=== PATIENT | female | born 1930 ===

== ENCOUNTER 2018-08-25 21:25 | Inpatient (IN) ==
[2018-08-26 00:40] LABS: Baso # (Auto) 0.1 th/mm3 (0.0-0.2); Eos # (Auto) 0.1 th/mm3 (0.0-0.4); Eos % (Auto) 1.6 % (0.0-4.0); Hematocrit 33.8 % (35.0-46.0); Hemoglobin 11.2 gm/dL (11.6-15.3); Lymph # (Auto) 2.3 th/mm3 (1.0-4.8); Lymph % (Auto) 27.4 % (9.0-44.0); Mean Corpuscular HGB Conc 33.1 % (32.0-36.0); Mean Corpuscular Hemoglobin 28.2 pg (27.0-34.0); Mean Corpuscular Volume 85.3 fL (80.0-100.0); Mean Platelet Volume 9.1 fL (7.0-11.0); Mono # (Auto) 0.7 th/mm3 (0.0-0.9); Mono % (Auto) 8.8 % (0.0-8.0); Neut % (Auto) 61.2 % (16.0-70.0); Platelet Count 264 th/mm3 (150-450); Red Blood Count 3.97 mil/mm3 (4.00-5.30); Red Cell Distribution Width 14.6 % (11.6-17.2); White Blood Count 8.2 th/mm3 (4.0-11.0)
[2018-08-26 01:01] LABS: Alanine Aminotransferase 14 U/L (10-53); Albumin 3.7 g/dL (3.4-5.0); Anion Gap 8 meq/L (5-15); Aspartate Aminotransferase 27 U/L (15-37); Blood Urea Nitrogen 18 mg/dL (7-18); Calcium 9.2 mg/dL (8.5-10.1); Carbon Dioxide 27.8 meq/L (21.0-32.0); Chloride 106 meq/L (98-107); Glomerular Filtration Rate 21 mL/min (>89); Glucose,Random 111 mg/dL (74-106); Magnesium 1.9 mg/dL (1.5-2.5); Potassium 3.9 meq/L (3.5-5.1); Sodium 142 meq/L (136-145)
[2018-08-26 01:11] LABS: Alkaline Phosphatase 109 U/L (45-117); Total Protein 7.7 g/dL (6.4-8.2)
[2018-08-26] MEDS ORDERED: Acetaminophen 325 MG Tablet PO ONE (01:14)
[2018-08-26] MEDS ORDERED: Sodium Chlor 0.9% Inj 500 ML IV.SIG SCH (02:00)
--- NOTE | 2018-08-26 02:22 | ED ---
HPI General Chief Complaint: Medical Clearance Stated Complaint: Mishel Simental Time Seen by Provider: 08/25/18 22:28 Source: EMS Mode of arrival: EMS Limitations: other (Dementia) History of Present Illness HPI Narrative: Patient was brought in as a Pollard act. Apparently patient as per the Pollard act has been threatening to kill herself and shoot her dogs. She has history of dementia. She appears to be quite disheveled and unkempt. She is not a reliable historian. She is vehemently denying everything and very paranoid. She would not let me or the nurse see her. Vital signs are relatively stable Related Data Home Medications Medication Instructions Recorded Confirmed calcitriol 0.25 mcg PO DAILY 08/27/18 08/27/18 donepezil 10 mg PO HS 08/27/18 08/27/18 levocetirizine 5 mg PO DAILY 08/27/18 08/27/18 lovastatin 40 mg PO QPM 08/27/18 08/27/18 metoprolol succinate 25 mg PO DAILY 08/27/18 08/27/18 Previous Rx's Medication Instructions Recorded amlodipine [Norvasc] 5 mg PO DAILY 30 Days #30 tab 08/28/18 donepezil 5 mg PO DAILY 30 Days #30 tab 08/28/18 memantine [Namenda] 5 mg PO DAILY 30 Days #30 tab 08/28/18 quetiapine 25 mg PO BID #60 tab 08/28/18 Allergies Allergy/AdvReac Type Severity Reaction Status Date / Time No Allergy Information Allergy Verified 08/27/18 13:19 Available Review of Systems ROS Unobtainable ROS Unobtainable: unobtainable due to mental condition [facility] Medical History Medical History Medical history unknown (Acute) Surgical history unknown (Acute) Social History Social History Substance History: Unable to Obtain Smoking Status: Refused to answer How Often Do You Have a Drink Containing Alcohol: Unable to Obtain Immunization History Tetanus Immunization: Unable to Assess Exam Narrative Exam Narrative: GENERAL: Awake, disheveled, poor skin hygiene, confused and angry SKIN: Focused skin assessment warm/dry. Disheveled and poor skin hygiene HEAD: Atraumatic. Normocephalic. EYES: Pupils equal and round. No scleral icterus. No injection or drainage. ENT: No nasal bleeding or discharge. Mucous membranes pink and moist. NECK: Trachea midline. No JVD. CARDIOVASCULAR: Regular rate and rhythm. No murmur appreciated. RESPIRATORY: No accessory muscle use. Clear to auscultation. Breath sounds equal bilaterally. GASTROINTESTINAL: Abdomen soft, non-tender, nondistended. Hepatic and splenic margins not palpable. MUSCULOSKELETAL: No obvious deformities. No clubbing. No cyanosis. No edema. NEUROLOGICAL: Awake and confused. No obvious cranial nerve deficits. Motor grossly within normal limits. Normal speech. She seems very angry and paranoid PSYCHIATRIC: Appropriate mood and affect; insight and judgment normal. Course Initial Documented Vital Signs Temperature 98.4 F 08/25/18 22:38 Pulse Rate 74 08/25/18 22:38 Respiratory Rate 18 08/25/18 22:38 Blood Pressure 197/98 H 08/25/18 22:38 Pulse Oximetry 97 08/25/18 22:38 Last Documented Vital Signs Temperature 98.3 F 08/28/18 11:59 Pulse Rate 57 L 08/28/18 11:59 Respiratory Rate 16 08/28/18 11:59 Blood Pressure 114/51 L 08/28/18 11:59 Pulse Oximetry 98 08/28/18 11:59 Medical Decision Making [facility] Narrative Medical decision making narrative: 2:21 AM blood test results are back and creatinine is somewhat elevated. Have no old blood test results to compare this with. However given patient's condition there could be some element of dehydration. I have ordered 500 cc of IV fluid bolus. After that she will be medically cleared. She will require psych screen. Medical Screen Exam Complete: Yes Emergency Medical Condition: Yes Lab Data Result diagrams: 08/28/18 09:35 08/28/18 09:35 Lab Results 08/25/18 08/25/18 08/26/18 Range/Units 23:55 23:55 04:00 WBC 8.2 (4.0-11.0) th/mm3 RBC 3.97 L (4.00-5.30) mil/mm3 Hgb 11.2 L (11.6-15.3) gm/dL Hct 33.8 L (35.0-46.0) % MCV 85.3 (80.0-100.0) fL MCH 28.2 (27.0-34.0) pg MCHC 33.1 (32.0-36.0) % RDW 14.6 (11.6-17.2) % Plt Count 264 (150-450) th/mm3 MPV 9.1 (7.0-11.0) fL Neut % (Auto) 61.2 (16.0-70.0) % Lymph % (Auto) 27.4 (9.0-44.0) % [place] % (Auto) 8.8 H (0.0-8.0) % Eos % (Auto) 1.6 (0.0-4.0) % Baso % (Auto) 1.0 (0.0-2.0) % Neut # (Auto) 5.0 (1.8-7.7) th/mm3 Lymph # (Auto) 2.3 (1.0-4.8) th/mm3 [place] # (Auto) 0.7 (0.0-0.9) th/mm3 Eos # (Auto) 0.1 (0.0-0.4) th/mm3 Baso # (Auto) 0.1 (0.0-0.2) th/mm3 WBC Differential . Differential Comment Auto diff final Sodium 142 (136-145) meq/L Potassium 3.9 (3.5-5.1) meq/L Chloride 106 (98-107) meq/L Carbon Dioxide 27.8 (21.0-32.0) meq/L Anion Gap 8 (5-15) meq/L BUN 18 (7-18) mg/dL Creatinine 2.07 H (0.50-1.00) mg/dL Estimated GFR 21 L (>89) mL/min Random Glucose 111 H (74-106) mg/dL Calcium 9.2 (8.5-10.1) mg/dL Magnesium 1.9 (1.5-2.5) mg/dL Total Bilirubin 0.6 (0.2-1.0) mg/dL AST 27 (15-37) U/L ALT 14 (10-53) U/L Alkaline Phosphatase 109 (45-117) U/L Total Protein 7.7 (6.4-8.2) g/dL Albumin 3.7 (3.4-5.0) g/dL TSH 1.690 (0.358-3.740) uIU/mL Urine Color (Yellw/Straw) Urine Clarity (Clear) Urine pH (5.0-8.5) Ur Specific [place] (1.002-1.035) Urine Protein (Neg-Trace) mg/dL Urine Glucose (UA) (Negative) mg/dL Urine Ketones (Negative) mg/dL Urine Occult Blood (Negative) Urine Nitrate (Negative) Urine Bilirubin (Negative) Urine Urobilinogen (Less than 2) mg/dL Ur Leukocyte Esterase (Negative) Urine RBC (0-3) /hpf Urine WBC (0-5) /hpf Ur Squamous Epith Cells (0-5) /hpf Urine Bacteria (None) /hpf Hyaline Casts (0-3) /lpf Urine Mucus (Occasional) /lpf Micro UA Comment Ur Microscopic Review Urine Culture Comments Urine Opiates Screen Neg (Neg) Ur Barbiturates Screen Neg (Neg) Ur Amphetamines Screen Neg (Neg) U Benzodiazepines Scrn Neg (Neg) Urine Cocaine Screen Neg (Neg) U Cannabinoids Screen Neg (Neg) Serum Alcohol Less than 3 (0-5) mg/dL 08/26/18 08/27/18 08/27/18 Range/Units 04:00 15:44 15:44 WBC 6.0 (4.0-11.0) th/mm3 RBC 3.67 L (4.00-5.30) mil/mm3 Hgb 10.5 L (11.6-15.3) gm/dL Hct 32.0 L (35.0-46.0) % MCV 87.0 (80.0-100.0) fL MCH 28.5 (27.0-34.0) pg MCHC 32.8 (32.0-36.0) % RDW 14.5 (11.6-17.2) % Plt Count 220 (150-450) th/mm3 MPV 9.3 (7.0-11.0) fL Neut % (Auto) 64.1 (16.0-70.0) % Lymph % (Auto) 26.6 (9.0-44.0) % [place] % (Auto) 7.1 (0.0-8.0) % Eos % (Auto) 1.5 (0.0-4.0) % Baso % (Auto) 0.7 (0.0-2.0) % Neut # (Auto) 3.8 (1.8-7.7) th/mm3 Lymph # (Auto) 1.6 (1.0-4.8) th/mm3 [place] # (Auto) 0.4 (0.0-0.9) th/mm3 Eos # (Auto) 0.1 (0.0-0.4) th/mm3 Baso # (Auto) 0.0 (0.0-0.2) th/mm3 WBC Differential . Differential Comment Auto diff final Sodium 144 (136-145) meq/L Potassium 3.3 L (3.5-5.1) meq/L Chloride 110 H (98-107) meq/L Carbon Dioxide 26.1 (21.0-32.0) meq/L Anion Gap 8 (5-15) meq/L BUN 15 (7-18) mg/dL Creatinine 1.68 H (0.50-1.00) mg/dL Estimated GFR 26 L (>89) mL/min Random Glucose 124 H (74-106) mg/dL Calcium 8.8 (8.5-10.1) mg/dL Magnesium (1.5-2.5) mg/dL Total Bilirubin 0.3 (0.2-1.0) mg/dL AST 27 (15-37) U/L ALT 13 (10-53) U/L Alkaline Phosphatase 91 (45-117) U/L Total Protein 6.7 D (6.4-8.2) g/dL Albumin 3.0 L D (3.4-5.0) g/dL TSH (0.358-3.740) uIU/mL Urine Color Yellow (Yellw/Straw) Urine Clarity Clear (Clear) Urine pH 6.0 (5.0-8.5) Ur Specific [place] 1.014 (1.002-1.035) Urine Protein Negative (Neg-Trace) mg/dL Urine Glucose (UA) Negative (Negative) mg/dL Urine Ketones Negative (Negative) mg/dL Urine Occult Blood Small H (Negative) Urine Nitrate Negative (Negative) Urine Bilirubin Negative (Negative) Urine Urobilinogen Less than 2 (Less than 2) mg/dL Ur Leukocyte Esterase Large H (Negative) Urine RBC 2 (0-3) /hpf Urine WBC 13 H (0-5) /hpf Ur Squamous Epith Cells 2 (0-5) /hpf Urine Bacteria Rare H (None) /hpf Hyaline Casts 4 (0-3) /lpf Urine Mucus Few H (Occasional) /lpf Micro UA Comment Culture indicated Ur Microscopic Review Not Reportable Urine Culture Comments Culture indicated Urine Opiates Screen (Neg) Ur Barbiturates Screen (Neg) Ur Amphetamines Screen (Neg) U Benzodiazepines Scrn (Neg) Urine Cocaine Screen (Neg) U Cannabinoids Screen (Neg) Serum Alcohol (0-5) mg/dL 08/28/18 08/28/18 Range/Units 09:35 09:35 WBC 7.5 (4.0-11.0) th/mm3 RBC 4.11 (4.00-5.30) mil/mm3 Hgb 11.5 L (11.6-15.3) gm/dL Hct 34.9 L (35.0-46.0) % MCV 85.0 (80.0-100.0) fL MCH 27.9 (27.0-34.0) pg MCHC 32.9 (32.0-36.0) % RDW 14.8 (11.6-17.2) % Plt Count 231 (150-450) th/mm3 MPV 9.0 (7.0-11.0) fL Neut % (Auto) 55.3 (16.0-70.0) % Lymph % (Auto) 32.8 (9.0-44.0) % [place] % (Auto) 7.4 (0.0-8.0) % Eos % (Auto) 3.6 (0.0-4.0) % Baso % (Auto) 0.9 (0.0-2.0) % Neut # (Auto) 4.1 (1.8-7.7) th/mm3 Lymph # (Auto) 2.4 (1.0-4.8) th/mm3 [place] # (Auto) 0.6 (0.0-0.9) th/mm3 Eos # (Auto) 0.3 (0.0-0.4) th/mm3 Baso # (Auto) 0.1 (0.0-0.2) th/mm3 WBC Differential . Differential Comment Auto diff final Sodium 143 (136-145) meq/L Potassium 4.3 D (3.5-5.1) meq/L Chloride 112 H (98-107) meq/L Carbon Dioxide 22.1 (21.0-32.0) meq/L Anion Gap 9 (5-15) meq/L BUN 12 (7-18) mg/dL Creatinine 1.60 H (0.50-1.00) mg/dL Estimated GFR 28 L (>89) mL/min Random Glucose 84 (74-106) mg/dL Calcium 8.9 (8.5-10.1) mg/dL Magnesium (1.5-2.5) mg/dL Total Bilirubin (0.2-1.0) mg/dL AST (15-37) U/L ALT (10-53) U/L Alkaline Phosphatase (45-117) U/L Total Protein (6.4-8.2) g/dL Albumin (3.4-5.0) g/dL TSH (0.358-3.740) uIU/mL Urine Color (Yellw/Straw) Urine Clarity (Clear) Urine pH (5.0-8.5) Ur Specific [place] (1.002-1.035) Urine Protein (Neg-Trace) mg/dL Urine Glucose (UA) (Negative) mg/dL Urine Ketones (Negative) mg/dL Urine Occult Blood (Negative) Urine Nitrate (Negative) Urine Bilirubin (Negative) Urine Urobilinogen (Less than 2) mg/dL Ur Leukocyte Esterase (Negative) Urine RBC (0-3) /hpf Urine WBC (0-5) /hpf Ur Squamous Epith Cells (0-5) /hpf Urine Bacteria (None) /hpf Hyaline Casts (0-3) /lpf Urine Mucus (Occasional) /lpf Micro UA Comment Ur Microscopic Review Urine Culture Comments Urine Opiates Screen (Neg) Ur Barbiturates Screen (Neg) Ur Amphetamines Screen (Neg) U Benzodiazepines Scrn (Neg) Urine Cocaine Screen (Neg) U Cannabinoids Screen (Neg) Serum Alcohol (0-5) mg/dL Discharge Plan Discharge Disposition Patient Disposition: ED Admit(ED Internal Use Only) Discharge Condition Condition: Stable Discharge Order Discharge Orders: Discharge Order (Routine); Ordered 08/28/18 Ordered By: Bing Thornton ED Use Only Admit Order (Routine); Ordered 08/26/18 Ordered By: Kiko Marx Discharge Details Anticipated Discharge Date: 08/28/18 Discharge Comment: Ok to discharge to inpatient med-psych unit. Need to continue IVF hydration in med-psych. Diagnosis: Dementia, UTI (urinary tract infection) Physicians Team ED Provider: Yves Mccarty Primary Care Provider: UNKNOWN, Attending Provider: Betty Jensen Other Providers: Wilbur Randall Status ED Status: Left Department Discharge Information Discharge Date/Time: 08/26/18 14:25
[2018-08-26 04:31] LABS: Bacteria,Urine Rare /hpf; Bilirubin,Urine Negative (Negative); Clarity,Urine Clear (Clear); Color,Urine Yellow (Yellw/Straw); Glucose,Urine (UA) Negative (Negative); Hyaline Casts,Urine 4 /lpf (0-3); Leukocyte Esterase,Urine Large (Negative); Mucus,Urine Few /lpf (Occasional); Nitrite,Urine Negative (Negative); Specific Gravity,Urine 1.014 (1.002-1.035); Squamous Epithelial Cell,Urine 2 /hpf (0-5)
[2018-08-26 04:34] LABS: Amphetamine Screen,Urine Neg (Neg); Barbiturate Screen,Urine Neg (Neg); Cannabinoid Screen,Urine Neg (Neg); Cocaine Screen,Urine Neg (Neg)
[2018-08-26 04:51] LABS: Opiate Screen,Urine Neg (Neg)
--- NOTE | 2018-08-26 11:01 | ED ---
HPI - Psych - General Source: EMS Mode of arrival: EMS - General Chief Complaint: Medical Clearance Stated Complaint: CRUZITO-Mukund Simental Time Seen by Provider: 08/25/18 22:28 - History of Present Illness HPI Narrative: Patient is an elderly, , who was admitted as a Doecandle Marlena Wall she states that her name is Starr Baires. She was transported to the emergency room under a Pollard act by the [facility]'s office. The Pollard act states," Jennifer Bush is Starr Baires's instrumentation chemist who advised Dequan ran into oncoming traffic when she went out to get the mail. She explained Dequan told her several times that she would hurt and her dogs. I made contact with Dequan who was confused and unable to determine if she needs to have a mental evaluation. Dequan attempted to open the car door several times on I for and asked me to shoot her." Patient is in E54 of the emergency department with a sitter. She is disheveled and unkept. She is very confused. She is a very poor historian. She was able to tell me that her . 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 She states that she has children but she is unable to tell me their names or where they live. She endorses that there are guns in the home and she is not sure if she knows how to assemble them but she would use them. She states she does not smoke, drink or do any illicit drugs. She has no insight to date time or place. Insight and judgment is poor. Speech is of normal rate rhythm and tone. She states she is able to ambulate without assistance but this has not been witnessed by this provider. She has no delusions. No paranoia. She currently has a urinary tract infection. She is highly confused. Collateral : Attempted to call instrumentation chemist Jennifer Bush at [phone] with no response. Dx: Dementia, UTI (Azra Rutherford) - Related Data Home Medications Medication Instructions Recorded Confirmed Unable to Obtain Home Meds 08/25/18 08/25/18 Allergies Allergy/AdvReac Type Severity Reaction Status Date / Time No Allergy Information Allergy Unverified 08/25/18 22:39 Available Review of Systems All other systems reviewed negative except as stated in HPI PMFSH - History History Provided By: Patient - Medical History Medical History: Medical History (Last Reviewed 08/26/18 @ 02:20 by Yves Mccarty MD) Medical history unknown Surgical history unknown - Tobacco History Smoking Status: Unknown if ever smoked - Alcohol History How Often Do You Have a Drink Containing Alcohol: Unable to Obtain - Substance Use History Substance History: Unable to Obtain - Travel History Recent Travel in the [place] Within the Last 8 Weeks: No Recent Travel Out of the Country Within the Last 8 Weeks: No - Immunization History Tetanus Immunization: Unable to Assess Psychiatric History - Psychiatric History Patient states that she has not been under the care of psychiatry but she is a very poor historian. (Azra Rutherford) Physical Exam - General Limitations: other (Dementia) - Head Head exam: atraumatic - Eye Eye exam: Present: normal appearance - ENT ENT exam: Present: normal exam - Neck Neck exam: Present: normal inspection Mental Status Examination Appearance: Disheveled Consciousness: Alert Orientation: Person Motor Activity: Other (states that she amb without assistance, but unable to witness at this time ) Speech: Unremarkable Language: Adequate Fund of Knowledge: Poor Attention and Concentration: Inadequate Memory: Impaired Mood: Irritable Affect: Irritable Thought Process & Associations: Disorganized Thought Content: Other (confused , currently has a UTI ) Hallucination Type: None Delusion Type: None Suicidal Ideation: No Suicidal Plan: No Suicidal Intention: No Homicidal Ideation: No Homicidal Plan: No Homicidal Intention: No Insight: Poor Judgment: Poor Initial Documented Vital Signs Temperature 98.4 F 08/25/18 22:38 Pulse Rate 74 08/25/18 22:38 Respiratory Rate 18 08/25/18 22:38 Blood Pressure 197/98 H 08/25/18 22:38 Pulse Oximetry 97 08/25/18 22:38 Last Documented Vital Signs Temperature 98.4 F 08/25/18 22:38 Pulse Rate 74 08/25/18 22:38 Respiratory Rate 18 08/25/18 22:38 Blood Pressure 197/98 H 08/25/18 22:38 Pulse Oximetry 97 08/25/18 22:38 MDM - Psych - Diagnosis (1) Dementia Code(s): F03.90 - Unspecified dementia without behavioral disturbance Status: Acute (2) UTI (urinary tract infection) Code(s): N39.0 - Urinary tract infection, site not specified Status: Acute - Medical Records Attestation: I reviewed the patient's medical records. - Lab Data Attestation: I reviewed the patient's lab results. Result diagrams: 08/25/18 23:55 08/25/18 23:55 - [facility] Narrative Medical decision making narrative: Patient is an elderly female who was brought to the emergency room as Marlena Barry. She states that her name is Starr Baires. She was placed under a Pollard act when her instrumentation chemist called because the patient was running into traffic and stated she was going to shoot herself and her dogs. Patient states that she has access to weapons in her home that belonged to her . She endorses that she did say it makes those statements. She is very confused and currently has a urinary tract infection. She states that she lives alone and does have someone to help her. I spoke with the ED Physician and based on her renal insufficiency and current UTI he will admit her to a medical floor for management and treatment. Psychiatry will continue to consult. (Azra Rutherford) - Lab Data Lab Results 08/25/18 08/25/18 08/26/18 Range/Units 23:55 23:55 04:00 WBC 8.2 (4.0-11.0) th/mm3 RBC 3.97 L (4.00-5.30) mil/mm3 Hgb 11.2 L (11.6-15.3) gm/dL Hct 33.8 L (35.0-46.0) % MCV 85.3 (80.0-100.0) fL MCH 28.2 (27.0-34.0) pg MCHC 33.1 (32.0-36.0) % RDW 14.6 (11.6-17.2) % Plt Count 264 (150-450) th/mm3 MPV 9.1 (7.0-11.0) fL Neut % (Auto) 61.2 (16.0-70.0) % Lymph % (Auto) 27.4 (9.0-44.0) % [place] % (Auto) 8.8 H (0.0-8.0) % Eos % (Auto) 1.6 (0.0-4.0) % Baso % (Auto) 1.0 (0.0-2.0) % Neut # (Auto) 5.0 (1.8-7.7) th/mm3 Lymph # (Auto) 2.3 (1.0-4.8) th/mm3 [place] # (Auto) 0.7 (0.0-0.9) th/mm3 Eos # (Auto) 0.1 (0.0-0.4) th/mm3 Baso # (Auto) 0.1 (0.0-0.2) th/mm3 WBC Differential . Differential Comment Auto diff final Sodium 142 (136-145) meq/L Potassium 3.9 (3.5-5.1) meq/L Chloride 106 (98-107) meq/L Carbon Dioxide 27.8 (21.0-32.0) meq/L Anion Gap 8 (5-15) meq/L BUN 18 (7-18) mg/dL Creatinine 2.07 H (0.50-1.00) mg/dL Estimated GFR 21 L (>89) mL/min Random Glucose 111 H (74-106) mg/dL Calcium 9.2 (8.5-10.1) mg/dL Magnesium 1.9 (1.5-2.5) mg/dL Total Bilirubin 0.6 (0.2-1.0) mg/dL AST 27 (15-37) U/L ALT 14 (10-53) U/L Alkaline Phosphatase 109 (45-117) U/L Total Protein 7.7 (6.4-8.2) g/dL Albumin 3.7 (3.4-5.0) g/dL TSH 1.690 (0.358-3.740) uIU/mL Urine Color (Yellw/Straw) Urine Clarity (Clear) Urine pH (5.0-8.5) Ur Specific [place] (1.002-1.035) Urine Protein (Neg-Trace) mg/dL Urine Glucose (UA) (Negative) mg/dL Urine Ketones (Negative) mg/dL Urine Occult Blood (Negative) Urine Nitrate (Negative) Urine Bilirubin (Negative) Urine Urobilinogen (Less than 2) mg/dL Ur Leukocyte Esterase (Negative) Urine RBC (0-3) /hpf Urine WBC (0-5) /hpf Ur Squamous Epith Cells (0-5) /hpf Urine Bacteria (None) /hpf Hyaline Casts (0-3) /lpf Urine Mucus (Occasional) /lpf Micro UA Comment Ur Microscopic Review Urine Culture Comments Urine Opiates Screen Neg (Neg) Ur Barbiturates Screen Neg (Neg) Ur Amphetamines Screen Neg (Neg) U Benzodiazepines Scrn Neg (Neg) Urine Cocaine Screen Neg (Neg) U Cannabinoids Screen Neg (Neg) Serum Alcohol Less than 3 (0-5) mg/dL 08/26/18 Range/Units 04:00 WBC (4.0-11.0) th/mm3 RBC (4.00-5.30) mil/mm3 Hgb (11.6-15.3) gm/dL Hct (35.0-46.0) % MCV (80.0-100.0) fL MCH (27.0-34.0) pg MCHC (32.0-36.0) % RDW (11.6-17.2) % Plt Count (150-450) th/mm3 MPV (7.0-11.0) fL Neut % (Auto) (16.0-70.0) % Lymph % (Auto) (9.0-44.0) % [place] % (Auto) (0.0-8.0) % Eos % (Auto) (0.0-4.0) % Baso % (Auto) (0.0-2.0) % Neut # (Auto) (1.8-7.7) th/mm3 Lymph # (Auto) (1.0-4.8) th/mm3 [place] # (Auto) (0.0-0.9) th/mm3 Eos # (Auto) (0.0-0.4) th/mm3 Baso # (Auto) (0.0-0.2) th/mm3 WBC Differential Differential Comment Sodium (136-145) meq/L Potassium (3.5-5.1) meq/L Chloride (98-107) meq/L Carbon Dioxide (21.0-32.0) meq/L Anion Gap (5-15) meq/L BUN (7-18) mg/dL Creatinine (0.50-1.00) mg/dL Estimated GFR (>89) mL/min Random Glucose (74-106) mg/dL Calcium (8.5-10.1) mg/dL Magnesium (1.5-2.5) mg/dL Total Bilirubin (0.2-1.0) mg/dL AST (15-37) U/L ALT (10-53) U/L Alkaline Phosphatase (45-117) U/L Total Protein (6.4-8.2) g/dL Albumin (3.4-5.0) g/dL TSH (0.358-3.740) uIU/mL Urine Color Yellow (Yellw/Straw) Urine Clarity Clear (Clear) Urine pH 6.0 (5.0-8.5) Ur Specific [place] 1.014 (1.002-1.035) Urine Protein Negative (Neg-Trace) mg/dL Urine Glucose (UA) Negative (Negative) mg/dL Urine Ketones Negative (Negative) mg/dL Urine Occult Blood Small H (Negative) Urine Nitrate Negative (Negative) Urine Bilirubin Negative (Negative) Urine Urobilinogen Less than 2 (Less than 2) mg/dL Ur Leukocyte Esterase Large H (Negative) Urine RBC 2 (0-3) /hpf Urine WBC 13 H (0-5) /hpf Ur Squamous Epith Cells 2 (0-5) /hpf Urine Bacteria Rare H (None) /hpf Hyaline Casts 4 (0-3) /lpf Urine Mucus Few H (Occasional) /lpf Micro UA Comment Culture indicated Ur Microscopic Review Not Reportable Urine Culture Comments Culture indicated Urine Opiates Screen (Neg) Ur Barbiturates Screen (Neg) Ur Amphetamines Screen (Neg) U Benzodiazepines Scrn (Neg) Urine Cocaine Screen (Neg) U Cannabinoids Screen (Neg) Serum Alcohol (0-5) mg/dL
[2018-08-26] MEDS ORDERED: Bisacodyl 10 MG Supp RECTAL PRN (13:04)
[2018-08-26] MEDS ORDERED: Acetaminophen 325 MG Tablet PO PRN (13:04)
[2018-08-26] MEDS: Sod Chloride 0.9% Inj 1,000 ML IV.CONT SCH (13:33)
[2018-08-26] MEDS: Heparin - SQ 10,000 UNITS/ML Vial SQ SCH ×2 (13:33→21:40)
--- NOTE | 2018-08-26 13:58 | P.HPIM ---
History of Present Illness Service: [facility] Primary Care Physician: UNKNOWN History of Present Illness: This is a unknown aged change Marlena Bee with no clear past medical history. She is being admitted under a Pollard act for altered mental status and urinary tract infection. She reports that her name is Starr Baires. She was transferred to the emergency department under a Pollard act by the [facility]'s department. Reports that she had been running out to the street to be hit by traffic. She is unaware as to where she is a what is going on. Only thing she would discuss with me as she is worried about her jewelry and her dogs. Unwilling to provide any other information during my exam. She is a very poor historian. - Diagnosis (1) Altered mental status (2) Dementia (3) UTI (urinary tract infection) Review of Systems unobtainable due to mental condition, unobtainable due to mental status, other ( Poor historian) Constitutional: Denies chills, Denies fever(s) Ears, Nose, Mouth, and Throat: Denies headache(s) Cardiovascular: Denies chest pain Respiratory: Reports cough Gastrointestinal: Denies abdominal pain Psychiatric: Reports anxiety, Reports thoughts of hurting/killing yourself PMFSH - History History Provided By: Patient - Medical / Surgical Hx Neg / Unobtainable Medical Problems Denied: Unable to Obtain (Poor historian unable to obtain at this time due to altered mental status) - Medical History Medical History: Medical History (Last Reviewed 08/26/18 @ 02:20 by Yves Mccarty MD) Medical history unknown Surgical history unknown - Social History I have reviewed the patient's Social History: Yes - Tobacco History Smoking Status: Unknown if ever smoked - Alcohol History How Often Do You Have a Drink Containing Alcohol: Unable to Obtain - Substance Use History Substance History: Unable to Obtain - Travel History Recent Travel in the [place] Within the Last 8 Weeks: No Recent Travel Out of the Country Within the Last 8 Weeks: No - Immunization History Tetanus Immunization: Unable to Assess Medications and Allergies Active Medications: Active Medications Acetaminophen (Tylenol) 650 mg PO Q4H PRN PRN Reason: Temp > 100.4 Al Hydroxide/Mg Hydroxide (Milk Of Magnesia Liq) 30 ml PO Q12H PRN PRN Reason: Mild Constipation Bisacodyl (Dulcolax Supp) 10 mg RECTAL DAILY PRN PRN Reason: SEVERE CONSITIPATION Heparin Sodium (Porcine) (Heparin Inj) 5,000 units SQ Q8H [facility] Last Admin: 08/26/18 13:33 Dose: 5,000 units Sodium Chloride (Ns Inj) 1,000 mls @ 70 mls/hr IV.CONT .[id number] [facility] Last Admin: 08/26/18 13:33 Dose: 70 mls/hr Ceftriaxone Sodium 1,000 mg/ (Sodium Chloride) 100 mls @ 200 mls/hr IV.SIG Q24H [facility] Lactulose (Lactulose Liq) 30 ml PO DAILY PRN PRN Reason: SEVERE CONSITIPATION Ondansetron HCl (Zofran Inj) 4 mg IV.PUSH Q6H PRN PRN Reason: NAUSEA OR VOMITING Senna/Docusate Sodium (Sada-Colace) 1 tab PO BID [facility] Sennosides (Senokot) 17.2 mg PO Q12H PRN PRN Reason: Moderate Constipation Sodium Chloride (Ns Flush) 2 ml IV.FLUSH BID [facility] Sodium Chloride (Ns Flush) 2 ml IV.FLUSH PRN PRN PRN Reason: FLUSH AFTER USING IV ACCESS Temazepam (Restoril) 15 mg PO HS PRN PRN Reason: INSOMNIA Allergies Allergy/AdvReac Type Severity Reaction Status Date / Time No Allergy Information Allergy Unverified 08/25/18 22:39 Available Home Medications Medication Instructions Recorded Confirmed Type Unable to Obtain Home Meds 08/25/18 08/25/18 History Physical Exam Vital signs: Vital Signs 08/25/18 22:38 08/26/18 13:05 Temperature 98.4 F 97.8 F Pulse Rate 74 65 Respiratory Rate 18 18 Blood Pressure 197/98 H 169/83 H Pulse Oximetry 97 99 Intake & Output 08/25/18 08/26/18 08/26/18 18:59 06:59 18:59 Intake Total 600 / 600 Balance 600 / 600 Intake: IV 600 / 600 NS Inj 500 ML @ 1000 mls/hr IV. 500 / 500 SIG BOLUS [facility] Rx#:[id number] Rocephin Inj 1,000 MG In NS Inj 100 / 100 100 ML @ 200 mls/hr IV.SIG ONCE ONE Rx#:[id number] - Constitutional no acute distress, thin Comments: Poor hygiene - Routine HEENT Exam Head: Present: normocephalic, atraumatic Eye: Present: EOMI, PERRL ENT: Present: mucous membranes moist - Routine Neck Exam Present: supple, full ROM. Absent: JVD - Routine Respiratory Exam Present: CTA bilaterally. Absent: accessory muscle use, wheezes - Routine Cardiovascular Exam Present: RRR - Routine Abdominal Exam Present: soft, normoactive bowel sounds. Absent: tenderness - Routine Extremities Exam Present: full ROM. Absent: cyanosis, clubbing, edema - Routine Skin Exam Present: intact - Routine Neurological Exam Present: alert, CN II-XII intact. Absent: oriented X3 (Person, but not place or time) - Detailed Neurological Exam: Coma Scale Eye Opening: Spontaneous Verbal Response: Confused Motor Response: Obey commands [place] Coma Scale Total: 14 - Routine Psychiatric Exam Present: homicidal ideation, auditory hallucinations, visual hallucinations, cooperative, anxious, agitated. Absent: normal thought process, good insight, good judgment Results - Labs CBC & Chem 7: 08/25/18 23:55 08/25/18 23:55 Labs: Short CBC 08/25/18 Range/Units 23:55 WBC 8.2 (4.0-11.0) th/mm3 Hgb 11.2 L (11.6-15.3) gm/dL Hct 33.8 L (35.0-46.0) % Plt Count 264 (150-450) th/mm3 BMP 08/25/18 23:55 Sodium 142 Potassium 3.9 Chloride 106 Carbon Dioxide 27.8 BUN 18 Creatinine 2.07 H Calcium 9.2 Liver Function 08/25/18 Range/Units 23:55 Total Bilirubin 0.6 (0.2-1.0) mg/dL AST 27 (15-37) U/L ALT 14 (10-53) U/L Alkaline Phosphatase 109 (45-117) U/L Albumin 3.7 (3.4-5.0) g/dL Urine 08/26/18 Range/Units 04:00 Urine Color Yellow (Yellw/Straw) Urine Clarity Clear (Clear) Urine pH 6.0 (5.0-8.5) Ur Specific [place] 1.014 (1.002-1.035) Urine Protein Negative (Neg-Trace) mg/dL Urine Glucose (UA) Negative (Negative) mg/dL Caprini VTE Risk Assessment Caprini VTE Risk Assessment: Moderate/High Risk (score >= 2) Caprini Risk Assessment Model: Point Value = 1 Point Value = 2 Point Value = 3 Point Value = 5 Age 41-60 Minor surgery BMI > 25 kg/m2 Swollen legs Varicose veins or History of unexplained or recurrent spontaneous Oral contraceptives or hormone replacement Sepsis (< 1 month) Serious lung disease, including pneumonia (< 1 month) Abnormal pulmonary function Acute myocardial infarction Congestive heart failure (< 1 month) History of inflammatory bowel disease Medical patient at bed rest Age 61-74 Arthroscopic surgery Major open surgery (> 45 min) Laparoscopic surgery (> 45 min) Malignancy Confined to bed (> 72 hours) Immobilizing plaster cast Central venous access Age >= 75 History of VTE Family history of VTE Factor V Leiden Prothrombin [id number] Lupus anticoagulant Anticardiolipin antibodies Elevated serum homocysteine Heparin-induced thrombocytopenia Other congenital or acquired thrombophilia Stroke (< 1 month) Elective arthroplasty Hip, pelvis, or leg fracture Acute spinal cord injury (< 1 month) Prophylaxis Regimen: Total Risk Factor Score Risk Level Prophylaxis Regimen 0-1 Low Early ambulation 2 Moderate Order ONE of the following: *Sequential Compression Device (SCD) *Heparin 5000 units SQ BID 3-4 Higher Order ONE of the following medications: *Heparin 5000 units SQ TID *Enoxaparin/Lovenox 40 mg SQ daily (WT < 150 kg, CrCl > 30 mL/min) *Enoxaparin/Lovenox 30 mg SQ daily (WT < 150 kg, CrCl > 10-29 mL/min) *Enoxaparin/Lovenox 30 mg SQ BID (WT < 150 kg, CrCl > 30 mL/min) AND/OR *Sequential Compression Device (SCD) 5 or more Highest Order ONE of the following medications: *Heparin 5000 units SQ TID (Preferred with Epidurals) *Enoxaparin/Lovenox 40 mg SQ daily (WT < 150 kg, CrCl > 30 mL/min) *Enoxaparin/Lovenox 30 mg SQ daily (WT < 150 kg, CrCl > 10-29 mL/min) *Enoxaparin/Lovenox 30 mg SQ BID (WT < 150 kg, CrCl > 30 mL/min) AND *Sequential Compression Device (SCD) Assessment and Plan - Assessment (1) Altered mental status Code(s): R41.82 - Altered mental status, unspecified Status: Acute (2) Dementia Code(s): F03.90 - Unspecified dementia without behavioral disturbance Status: Acute (3) UTI (urinary tract infection) Code(s): N39.0 - Urinary tract infection, site not specified Status: Acute - Plan This is a female presented for altered mental status under Pollard act. Found to have urinary tract infection. 1. Urinary tract infection -Continue ceftriaxone -Continue to monitor urine culture adjust antibiotics accordingly -Continue adequate fluid hydration 2. Unclear for acute versus chronic kidney injury -Continue IV fluids -Avoid nephrotoxic medications 3. Altered mental status under Pollard act -Reporting suicidal ideation -Psychiatry consulted, recommendations appreciated Regular diet Monitor electrolytes replace accordingly Continue with sitter DVT prophylaxis with SCDs and heparin Code Status: full code Discharge Planning: pending further work up
[2018-08-26] MEDS ORDERED: Temazepam 15 MG Capsule PO PRN (21:00)
[2018-08-26] MEDS: Senna/Docusate Sodium 8.6/50 MG Tablet PO SCH (21:00)
--- NOTE | 2018-08-27 08:31 | P.PNIM ---
Subjective Interval history: Follow-up for AMS, UTI, SEBLE. Patient is currently awake, alert, sitting upright in bed. She is oriented to self only. She gets upset and states "stop asking me so many questions, I do not know the answers." She denies any medical complaints including no fever/chills, chest pain, cough, shortness of breath, abdominal pain, or urinary complaints. Discussed with RN, patient just received Haldol and Ativan to replace IV access. Attempted to discuss with the patient the importance of IV fluid hydration, however the patient adamantly states there is nothing wrong with her and she is not dehydrated, although she does admit that she does not have an appetite and does not eat very much. Physical Exam Vital signs: Vital Signs 08/26/18 13:05 08/26/18 15:02 08/26/18 16:17 Temperature 97.8 F 97.6 F Pulse Rate 65 65 Respiratory Rate 18 16 Blood Pressure 169/83 H 188/80 H 166/81 H Pulse Oximetry 99 99 08/26/18 19:47 08/27/18 08:00 Temperature 97.7 F 97.7 F Pulse Rate 68 75 Respiratory Rate 16 16 Blood Pressure 144/75 H 214/98 H Pulse Oximetry 97 100 Intake & Output 08/26/18 08/27/18 08/27/18 18:59 06:59 18:59 Other: # Voids 1 Narrative: GENERAL: Confused elderly female patient in NAD. SKIN: Warm and dry. No visible rash. HEENT: Pupils equal and round. Mucous membranes dry. NECK: Supple. Trachea midline. CARDIOVASCULAR: Regular rate and rhythm. No murmur appreciated. RESPIRATORY: No accessory muscle use. Clear to auscultation. Breath sounds equal bilaterally. GASTROINTESTINAL: Abdomen soft, non-tender, nondistended. Normoactive bowel sounds x4. MUSCULOSKELETAL: No obvious deformities. Extremities without clubbing, cyanosis , or edema. NEUROLOGICAL: Awake and alert, oriented to self only. No obvious cranial nerve deficits. Moving all extremities spontaneously. Normal speech. PSYCHIATRIC: Irritable mood, argumentative, insight and judgment limited. Results Labs CBC & Chem 7: 08/25/18 23:55 08/25/18 23:55 Assessment and Plan (1) Altered mental status: Code(s): R41.82 - Altered mental status, unspecified Status: Acute (2) Dementia: Code(s): F03.90 - Unspecified dementia without behavioral disturbance Status: Acute (3) UTI (urinary tract infection): Code(s): N39.0 - Urinary tract infection, site not specified Status: Acute Plan female presented for altered mental status under Pollard act. Found to have urinary tract infection. Acute metabolic encephalopathy: suspect multifactorial with UTI, SEBLE/dehydration , dementia, possible hypertensive encephalpathy, and possible underlying psychiatric component -treat UTI with abx -treat SEBLE with IVF hydration -control BP as below -monitor neuro checks -monitor on telemetry -monitor for improvement -patient still acutely altered, agitated, paranoid - psych following as below -continue sitter -Consult PT Urinary tract infection: UA with large leuks, WBCs. Patient unreliable historian , unknown if symptomatic. -Continue antibiotics with IV Rocephin -monitor urine culture adjust antibiotics accordingly -Continue IV fluid hydration SEBLE: Cr 2.07, suspect prerenal secondary to significant dehydration, patient very dry on exam, and admits to poor oral intake -Continue IV fluid hydration -Avoid nephrotoxins -Monitor BMP closely Psychosis: acute. Presented under Pollard Act. Reportedly reporting suicidal ideation -Psychiatry consulted, discussed with Dr. Randall, will admit to inpatient psychiatry when medically stable -Given Haldol/Ativan x1 to obtain IV access for treatment -continue sitter -Started on seroquel 25mg po bid per psychiatry Accelerated Hypertension with Hypertensive Urgency: acute, BP up to 214/98 today -started on norvasc 5mg daily, titrate up as needed -continue patient's metoprolol succinate 25mg qd -Avoid ALEXANDR secondary to SEBLE -hydralazine prn -Monitor BP, adjust antihypertensives as needed Hyperlipidemia: chronic -continue patient's statin Dementia: chronic -continue patient's Aricept and namenda DVT prophylaxis with SCDs and heparin Progress Note: Quality VTE Deep Vein Thrombosis/Pulmonary Embolism Present on Admission: No _ (1) UTI (urinary tract infection) Qualifiers: Encounter type: Hematuria presence: Indwelling urinary catheter type: Urinary tract infection type: (2) Dementia Qualifiers: Alzheimer's disease onset: Dementia behavioral disturbance: Dementia type : (3) Altered mental status Qualifiers: Altered mental status type: Coma depth: Coma timing:
--- NOTE | 2018-08-27 10:12 | P.PNSTU ---
Subjective - Remarks Starr Baires is an 89 year old female, , unemployed, domiciled alone, with no reported psychiatric history, psychiatric hospitalizations, substance use, or medical conditions (she does not go to the doctor) who presented to the ER as a Marlena Bee following Pollard Act for altered mental status and possible suicide attempt. When asked why she is here, she states that she "got upset" but cannot remember why or what she did. She is not oriented to place or time (she repeated multiple times that she does not look at calendars) . and believes she is at a telegraphic typewriter mechanic's home. She states that she thought she was driving to her home but ended up here instead. She confided in me that there are people who have been coming to her home and asking her to do things that she does not want to do. She states that she is very lonely and has no one to talk to so she knows she is "not normal." She says that all she does is cry. Her of many years about 16 years ago and her brothers have all as well. She states that her grandson lived with her until recently when she kicked him out for bringing a girl to her home and doing things she did not approve of. She denies use of alcohol or illicit substances. She appears disheveled but is cooperative and doesn't want us to think she is crazy. She is very confused and cannot tell me the year she was born. Her speech is fluent and she denies any visual or auditory hallucinations. When asked about suicidal ideation she states that she does think about hurting or killing herself because she "does not have Vin () or any friends." PPHx: None reported PMHx: None reported Substance Use: she denies any use of alcohol or drugs. Social: She is unemployed and living alone Objective Vital Signs: Vital Signs 08/26/18 13:05 08/26/18 15:02 08/26/18 16:17 Temperature 97.8 F 97.6 F Pulse Rate 65 65 Respiratory Rate 18 16 Blood Pressure 169/83 H 188/80 H 166/81 H Pulse Oximetry 99 99 08/26/18 19:47 08/27/18 08:00 Temperature 97.7 F 97.7 F Pulse Rate 68 75 Respiratory Rate 16 16 Blood Pressure 144/75 H 214/98 H Pulse Oximetry 97 100 Intake & Output 08/26/18 08/27/18 08/27/18 18:59 06:59 18:59 Other: # Voids 1 Result Diagrams: 08/25/18 23:55 08/25/18 23:55 Medications and IVs: Active Medications Acetaminophen (Tylenol) 650 mg PO Q4H PRN PRN Reason: Temp > 100.4 Al Hydroxide/Mg Hydroxide (Milk Of Magnesia Liq) 30 ml PO Q12H PRN PRN Reason: Mild Constipation Amlodipine Besylate (Norvasc) 5 mg PO DAILY [facility] Bisacodyl (Dulcolax Supp) 10 mg RECTAL DAILY PRN PRN Reason: SEVERE CONSITIPATION Heparin Sodium (Porcine) (Heparin Inj) 5,000 units SQ Q8H [facility] Last Admin: 08/26/18 21:40 Dose: 5,000 units Sodium Chloride (Ns Inj) 1,000 mls @ 70 mls/hr IV.CONT .[id number] [facility] Last Infusion: 08/26/18 19:42 Dose: 70 mls/hr Ceftriaxone Sodium 1,000 mg/ (Sodium Chloride) 100 mls @ 200 mls/hr IV.SIG Q24H [facility] Lactulose (Lactulose Liq) 30 ml PO DAILY PRN PRN Reason: SEVERE CONSITIPATION Ondansetron HCl (Zofran Inj) 4 mg IV.PUSH Q6H PRN PRN Reason: NAUSEA OR VOMITING Senna/Docusate Sodium (Sada-Colace) 1 tab PO BID [facility] Last Admin: 08/26/18 21:00 Dose: Not Given Sennosides (Senokot) 17.2 mg PO Q12H PRN PRN Reason: Moderate Constipation Sodium Chloride (Ns Flush) 2 ml IV.FLUSH BID [facility] Last Admin: 08/26/18 23:39 Dose: Not Given Sodium Chloride (Ns Flush) 2 ml IV.FLUSH PRN PRN PRN Reason: FLUSH AFTER USING IV ACCESS Temazepam (Restoril) 15 mg PO HS PRN PRN Reason: INSOMNIA Objective Remarks: MMSE: 06/01 indicating severe cognitive impairment Assessment and Plan Assessment and Plan: Please, refer to Attending's Note, psychiatry consult
[2018-08-27] MEDS: Sod Chloride 0.9% Inj 1,000 ML IV.CONT SCH ×3 (10:19→19:00)
[2018-08-27] MEDS ORDERED: Haloperidol Inj 5 MG/ML Ampul IM ONE (10:20)
[2018-08-27] MEDS: Heparin - SQ 10,000 UNITS/ML Vial SQ SCH ×3 (10:32→22:24)
[2018-08-27] MEDS: Senna/Docusate Sodium 8.6/50 MG Tablet PO SCH ×2 (10:32→22:23)
[2018-08-27] MEDS: amLODIPine 5 MG Tablet PO SCH (10:32)
--- NOTE | 2018-08-27 12:03 | P.CONPSY ---
Provisional Diagnosis Admission Date: August 27, 2018 09:42 [place] I.: Unspecified psychosis, rule out dementia with behavioral disturbances, rule out late onset schizophrenia, rule out delirium [place] II.: Deferred [place] III.: UTI, SEBLE [place] IV.: Poor family and social support, patient is [place] V.: 40 History of Present Illness Service: ER Primary Care Provider: UNKNOWN History of Present Illness: Note written by medical student Alejandra Scales, but reviewed and edited by me. Starr Baires is an 89 year old women, , unemployed, domiciled alone, with no reported psychiatric history, psychiatric hospitalizations, substance use, or medical conditions (she does not go to the doctor), who presented to the ER as a Marlena Bee following Pollard Act for altered mental status and possible suicide attempt. Reports that she had been running out to the street to be hit by traffic. She is unaware as to where she is a is going on. Chart was reviewed. She was initially seen by Olga Rutherford in the ER and admission in psychiatry recommended, but she was transferred to observation status due to SEBLE and UTI. On psychiatry evaluation today she is calm, cooperative and a little but guarded. When asked why she is here, she states that she "got upset" but cannot remember why or what she did. Patient seems to be confused and disoriented, with prominent confabulation, must probably exacerbated by medical conditions. She is not oriented to place or time (she repeated multiple times that she does not look at calendars). and believes she is at a intake specialist's, sitter, home. She states that she thought she was driving to her home but ended up here instead. She confided in me that there are people who have been coming to her home and asking her to do things that she does not want to do. She states that she is very lonely and has no one to talk to so she knows she is "not normal." She says that all she does is cry. Her of many years about 16 years ago and her brothers have all as well. She states that her grandson lived with her until recently when she kicked him out for bringing a girl to her home and doing things she did not approve of. She denies use of alcohol or illicit substances. During the evaluation the patient also shows symptoms of paranoia, she has been refusing to take her medications, refusing to eat, the nurse asked me to give her medications in order to take her blood and do her test. Paranoia has been fluctuating. Seems to get worse when the patient is around people. Is unclear when the patient developed this symptoms. Patient also seems to be having visual hallucinations, she has no insight of this perceptual disturbances, she had the visual hallucinations on and off, at times she seems to be very distressed by them. She she has been seeing people around her bed, when I asked her how many people were present in her room at this moment, she answered several: and pointed at them saying that they were there since this morning. Mini-Mental was performed: She is scored 11/30. With prominent impairment in immediate and recent memory, executive function, recall, abstraction per She appears disheveled but is cooperative and doesn't want us to think she is crazy. She is very confused and cannot tell me the year she was born. Her speech is fluent and she denies any visual or auditory hallucinations. When asked about suicidal ideation she states that she does think about hurting or killing herself because she "does not have Vin () or any friends." As per Azra Rutherford: Patient is an elderly, , who was admitted as a [place] [id number] she states that her name is Starr Baires. She was transported to the emergency room under a Pollard act by the [facility]'s office. The Pollard act states," Jennifer Bush is Starr Baires's intake specialist who advised Dequan ran into oncoming traffic when she went out to get the mail. She explained Dequan told her several times that she would hurt and her dogs. I made contact with Dequan who was confused and unable to determine if she needs to have a mental evaluation. Dequan attempted to open the car door several times on I for and asked me to shoot her." Patient is in E54 of the emergency department with a sitter. She is disheveled and unkept. She is very confused. She is a very poor historian. She was able to tell me that her . 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 She states that she has children but she is unable to tell me their names or where they live. She endorses that there are guns in the home and she is not sure if she knows how to assemble them but she would use them. She states she does not smoke, drink or do any illicit drugs. She has no insight to date time or place. Insight and judgment is poor. Speech is of normal rate rhythm and tone. She states she is able to ambulate without assistance but this has not been witnessed by this provider. She has no delusions. No paranoia. She currently has a urinary tract infection. She is highly confused. PPHx: Patient denies psychiatric history, denies previous psychiatric hospitalizations, suicide attempts PMHx: None reported Substance Use: she denies any use of alcohol or drugs. Social: She was born and raised in [place], domiciled involvement, poor family and social support, she has 2 dogs, she has kids, but she clarifies that she does not talk to them, she is unemployed and living alone, she is . Review of Systems All other systems reviewed negative except as stated in HPI Constitutional: Denies anorexia, Denies body ache(s), Denies chills, Denies daytime sleepiness, Denies excessive sweating, Denies fatigue, Denies fever(s), Denies headache(s), Denies increased appetite, Denies lack of energy, Denies malaise, Denies night sweats, Denies weakness, Denies weight gain, Denies weight loss, Denies other Ears, Nose, Mouth, and Throat: Denies abnormal hearing, Denies bleeding gums, Denies bad breath, Denies change in voice, Denies dental pain, Denies difficulty swallowing, Denies dizziness, Denies dry mouth, Denies ear discharge , Denies ear pain, Denies facial pain, Denies headache(s), Denies hearing loss, Denies hoarseness, Denies lip swelling, Denies nosebleed, Denies mouth lesions, Denies mouth pain, Denies nasal congestion, Denies nasal discharge, Denies nasal obstruction, Denies nasal trauma, Denies neck lump, Denies neck pain, Denies nose pain, Denies pain with swallowing, Denies poor balance, Denies post nasal drip, Denies ringing in the ears, Denies sinus pain, Denies sinus pressure , Denies sore throat, Denies throat swelling, Denies tongue swelling, Denies other Cardiovascular: Denies chest pain, Denies chest pain at rest, Denies chest pain with activity, Denies excessive sweating, Denies fainting, Denies fast heart rate, Denies foot swelling, Denies generalized swelling, Denies irregular heart rhythm, Denies leg pain with activity, Denies leg sores, Denies leg swelling, Denies lightheadedness, Denies radiating jaw, neck or arm pain, Denies rapid, pounding, or irregular heartbeat, Denies shortness of breath, Denies shortness of breath with activity, Denies shortness of breath when lying down, Denies shortness of breath causing sudden awakening, Denies slow heart rate, Denies other Respiratory: Denies change in phlegm color, Denies chest congestion, Denies cough, Denies coughing up blood, Denies excessive phlegm production, Denies pain on inspiration, Denies pain with cough, Denies shortness of breath, Denies shortness of breath with activity, Denies snoring, Denies stridor, Denies wheezing, Denies other Gastrointestinal: Denies abdominal pain, Denies belching, Denies black, tarry stools, Denies bloating, Denies bright, red blood in stools, Denies change in bowel habits, Denies constant urge to pass stool, Denies change in stools, Denies coffee ground vomit, Denies constipation, Denies cramping, Denies difficulty swallowing, Denies excessive passing of gas, Denies feeling full early, Denies heartburn, Denies incontinent of stools, Denies loose stools, Denies nausea, Denies pain with swallowing, Denies vomiting, Denies vomiting blood, Denies other Genitourinary: Denies abnormal periods, Denies abnormal vaginal bleeding, Denies absent period, Denies bleeding between periods, Denies blood in urine, Denies difficulty starting urination, Denies difficulty urinating, Denies dribbling after urination, Denies frequent nighttime urination, Denies genital itching, Denies genital lesions, Denies heavy periods, Denies hot flashes, Denies light periods, Denies nipple discharge, Denies painful intercourse, Denies painful periods, Denies painful urination, Denies pelvic pain, Denies prolapse symptoms, Denies sexual problems, Denies side pain, Denies urinary incontinence, Denies urinary urgency, Denies vaginal discharge, Denies vaginal dryness, Denies vaginal odor, Denies vaginal itching, Denies other Musculoskeletal: Denies abnormal walking, Denies back pain, Denies body aches, Denies decreased muscle mass, Denies deformity, Denies joint pain, Denies joint swelling, Denies limited joint movement, Denies loss of height, Denies muscle cramps, Denies muscle weakness, Denies neck pain, Denies numbness, Denies radiating pain into limb, Denies stiffness, Denies tingling, Denies other Neurologic: Reports confusion, Denies abnormal hearing, Denies abnormal movements, Denies abnormal speech, Denies abnormal walking, Denies behavioral changes, Denies burning sensations, Denies dizziness, Denies fainting, Denies frequent falls, Denies headache(s), Denies lack of coordination, Denies localized weakness, Denies loss of vision, Denies memory loss, Denies numbness, Denies other visual disturbances, Denies radiating pain, Denies restless legs, Denies convulsions, Denies seizure-like activity, Denies sensory deficit, Denies tingling, Denies tingling/numbness/burning sensations, Denies tremor(s), Denies unsteadiness, Denies weakness, Denies other Psychiatric: Reports depression, Reports paranoia, Reports thoughts of hurting/ killing yourself, Denies abnormal sleep pattern, Denies anxiety, Denies behavioral changes, Denies change in appetite, Denies change in sex drive, Denies confusion, Denies difficulty concentrating, Denies hearing things others do not hear, Denies hopelessness, Denies irritability, Denies lack of enjoyment , Denies memory loss, Denies mood swings, Denies panic attacks, Denies seeing things others do not see, Denies sensing things others do not sense, Denies tactile hallucinations, Denies thoughts of hurting/killing others, Denies other PMFSH - History History Provided By: Patient - Medical / Surgical Hx Neg / Unobtainable Medical Problems Denied: Unable to Obtain (Poor historian unable to obtain at this time due to altered mental status) - Medical History Medical History: Medical History (Last Reviewed 08/27/18 @ 08:52 by Andriy Monterroso) Medical history unknown Surgical history unknown - Tobacco History Smoking Status: Refused to answer - Alcohol History How Often Do You Have a Drink Containing Alcohol: Unable to Obtain - Substance Use History Substance History: Unable to Obtain - Travel History Recent Travel in the [place] Within the Last 8 Weeks: No Recent Travel Out of the Country Within the Last 8 Weeks: No - Immunization History Tetanus Immunization: Unable to Assess Medications and Allergies Active Medications: Active Medications Acetaminophen (Tylenol) 650 mg PO Q4H PRN PRN Reason: Temp > 100.4 Al Hydroxide/Mg Hydroxide (Milk Of Magnesia Liq) 30 ml PO Q12H PRN PRN Reason: Mild Constipation Amlodipine Besylate (Norvasc) 5 mg PO DAILY [facility] Last Admin: 08/27/18 10:32 Dose: 5 mg Bisacodyl (Dulcolax Supp) 10 mg RECTAL DAILY PRN PRN Reason: SEVERE CONSITIPATION Donepezil HCl (Aricept) 5 mg PO DAILY [facility] Heparin Sodium (Porcine) (Heparin Inj) 5,000 units SQ Q8H [facility] Last Admin: 08/27/18 10:32 Dose: 5,000 units Sodium Chloride (Ns Inj) 1,000 mls @ 70 mls/hr IV.CONT .[id number] [facility] Last Admin: 08/27/18 11:03 Dose: 70 mls/hr Ceftriaxone Sodium 1,000 mg/ (Sodium Chloride) 100 mls @ 200 mls/hr IV.SIG Q24H [facility] Last Admin: 08/27/18 11:08 Dose: 200 mls/hr Lactulose (Lactulose Liq) 30 ml PO DAILY PRN PRN Reason: SEVERE CONSITIPATION Memantine (Namenda) 5 mg PO DAILY [facility] Ondansetron HCl (Zofran Inj) 4 mg IV.PUSH Q6H PRN PRN Reason: NAUSEA OR VOMITING Quetiapine Fumarate (Seroquel) 25 mg PO BID [facility] Senna/Docusate Sodium (Sada-Colace) 1 tab PO BID [facility] Last Admin: 08/27/18 10:32 Dose: 1 tab Sennosides (Senokot) 17.2 mg PO Q12H PRN PRN Reason: Moderate Constipation Sodium Chloride (Ns Flush) 2 ml IV.FLUSH BID [facility] Last Admin: 08/27/18 10:19 Dose: Not Given Sodium Chloride (Ns Flush) 2 ml IV.FLUSH PRN PRN PRN Reason: FLUSH AFTER USING IV ACCESS Temazepam (Restoril) 15 mg PO HS PRN PRN Reason: INSOMNIA Allergies Allergy/AdvReac Type Severity Reaction Status Date / Time No Allergy Information Allergy Unverified 08/25/18 22:39 Available Home Medications Medication Instructions Recorded Confirmed Type calcitriol 0.25 mcg PO DAILY 08/27/18 08/27/18 History donepezil 10 mg PO HS 08/27/18 08/27/18 History levocetirizine 5 mg PO DAILY 08/27/18 08/27/18 History lovastatin 40 mg PO QPM 08/27/18 08/27/18 History metoprolol succinate 25 mg PO DAILY 08/27/18 08/27/18 History Exam Vital signs: Vital Signs 08/26/18 13:05 08/26/18 15:02 08/26/18 16:17 Temperature 97.8 F 97.6 F Pulse Rate 65 65 Respiratory Rate 18 16 Blood Pressure 169/83 H 188/80 H 166/81 H Pulse Oximetry 99 99 08/26/18 19:47 08/27/18 08:00 08/27/18 11:39 Temperature 97.7 F 97.7 F 98.1 F Pulse Rate 68 75 78 Respiratory Rate 16 16 16 Blood Pressure 144/75 H 214/98 H 184/85 H Pulse Oximetry 97 100 99 Intake & Output 08/26/18 08/27/18 08/27/18 18:59 06:59 18:59 Intake Total 1000 / 1000 Balance 1000 / 1000 Intake: IV 1000 / 1000 NS Inj 1,000 ML @ 70 mls/hr IV. 1000 / 1000 CONT .[id number] [facility] Rx#:[id number] Other: # Voids 1 Narrative: No tremors, no EPS, no psychomotor agitation or retardation, no catatonia, no withdrawal symptoms - Constitutional mild distress - Routine HEENT Exam Head: Present: normocephalic, atraumatic Eye: Present: EOMI, PERRL ENT: Present: mucous membranes moist Mental Status Examination Appearance: Disheveled Consciousness: Alert Orientation: Person Motor Activity: Other (states that she amb without assistance, but unable to witness at this time ) Speech: Unremarkable Language: Adequate Fund of Knowledge: Poor Attention and Concentration: Inadequate Memory: Impaired Mood: Sad, Irritable Affect: Irritable Thought Process & Associations: Disorganized Thought Content: Delusional, Other (confused , currently has a UTI ) Hallucination Type: None, Visual Delusion Type: None, Bizarre, Paranoid Suicidal Ideation: No Suicidal Plan: No Suicidal Intention: No Homicidal Ideation: No Homicidal Plan: No Homicidal Intention: No Insight: Poor Judgment: Poor Assessment and Plan - Assessment (1) Unspecified psychosis Code(s): F29 - Unspecified psychosis not due to a substance or known physiological condition Status: Acute - Plan Plan: On my psychiatric evaluation today the patient presents calm, cooperative, but irritable, paranoid, with prominent confabulation and disorganized thought process. The patient reports that she does not trust people, she does not know the reason she was hospitalized and brought to the hospital, she has marked visual hallucinations of seeing people around her, as per police the patient was found acting rationally, running against the traffic, stating that she wanted to kill herself. The patient does not have any reported psychiatric history, no previous suicide attempts, no previous psychiatric hospitalizations. In the hospital she has been superficially cooperative with the nurses, but paranoid, refusing to give blood and take medications. In order to drop her blood and give her her medication for hypertension this morning she had to be medicated with Haldol 2 mg and Ativan 1 mg IM. Given her level of psychosis the patient poses danger to self and others, also increased risk of self neglecting behavior. She needs psychiatric admission for stabilization and safety. Collateral information is crucial to complete the psychiatric assessment. At this moment is unclear if current presentation is secondary to a major cognitive impairment, her underlying medical acute problems or major psychiatric illness decompensation. Mini-Mental was performed and patient scored 11 of 30 which might suggest an underlying dementia. We will start quetiapine 25 mg twice daily for psychosis. We will start Aricept 5 mg and Namenda 5 mg to avoid progression of dementia. bin worker intervention for collateral information from family members. Will order EKG, will stop psychotropics his QTC is longer than 460, will order brain CT to rule out neurological causes of AMS Will consider a neurology consult Transfer to [facility] psych [facility] once medically stable Justification for Continued Inpatient Stay: Patient is a psychiatric admission for stabilization and safety.
[2018-08-27] MEDS ORDERED: hydrALAZINE 25 MG Tablet PO PRN ×2 (12:16→12:18)
[2018-08-27] MEDS: QUEtiapine 25 MG Tablet PO SCH ×2 (13:20→22:24)
[2018-08-27 16:53] LABS: Baso % (Auto) 0.7 % (0.0-2.0); Eos # (Auto) 0.1 th/mm3 (0.0-0.4); Eos % (Auto) 1.5 % (0.0-4.0); Hemoglobin 10.5 gm/dL (11.6-15.3); Lymph # (Auto) 1.6 th/mm3 (1.0-4.8); Lymph % (Auto) 26.6 % (9.0-44.0); Mean Corpuscular HGB Conc 32.8 % (32.0-36.0); Mean Corpuscular Hemoglobin 28.5 pg (27.0-34.0); Mean Platelet Volume 9.3 fL (7.0-11.0); Mono # (Auto) 0.4 th/mm3 (0.0-0.9); Mono % (Auto) 7.1 % (0.0-8.0); Neut # (Auto) 3.8 th/mm3 (1.8-7.7); Neut % (Auto) 64.1 % (16.0-70.0); Platelet Count 220 th/mm3 (150-450); Red Blood Count 3.67 mil/mm3 (4.00-5.30); Red Cell Distribution Width 14.5 % (11.6-17.2)
[2018-08-27 17:23] LABS: Alanine Aminotransferase 13 U/L (10-53); Alkaline Phosphatase 91 U/L (45-117); Anion Gap 8 meq/L (5-15); Aspartate Aminotransferase 27 U/L (15-37); Blood Urea Nitrogen 15 mg/dL (7-18); Calcium 8.8 mg/dL (8.5-10.1); Carbon Dioxide 26.1 meq/L (21.0-32.0); Chloride 110 meq/L (98-107); Glomerular Filtration Rate 26 mL/min (>89); Glucose,Random 124 mg/dL (74-106); Potassium 3.3 meq/L (3.5-5.1); Sodium 144 meq/L (136-145); Total Protein 6.7 g/dL (6.4-8.2)
[2018-08-28] MEDS: Heparin - SQ 10,000 UNITS/ML Vial SQ SCH ×2 (05:53→13:15)
--- NOTE | 2018-08-28 08:47 | P.PNIM ---
Subjective Interval history: Follow-up for AMS, UTI, SEBLE, uncontrolled hypertension. The patient is awake, however closes her eyes and refuses to answer any questions. She does shake her head no to most questions. When asked if I could examine her , the patient shakes her head no and refuses examination. RN reports she is not in a good mood today, and pulled out her IV earlier. Otherwise, blood pressure much better controlled, vital signs stable. Physical Exam Vital signs: Vital Signs 08/27/18 11:39 08/27/18 16:00 08/27/18 22:15 Temperature 98.1 F Pulse Rate 78 56 L 63 Respiratory Rate 16 16 18 Blood Pressure 184/85 H 128/65 137/63 Pulse Oximetry 99 98 96 08/28/18 00:00 08/28/18 04:00 08/28/18 08:00 Temperature 97.7 F Pulse Rate 56 L 56 L 72 Respiratory Rate 16 16 16 Blood Pressure 131/59 L 159/78 H Pulse Oximetry 97 Intake & Output 08/27/18 08/28/18 08/28/18 18:59 06:59 18:59 Intake Total 580 / 580 100 / 100 Balance 580 / 580 100 / 100 Intake: IV 100 / 100 100 / 100 Rocephin Inj 1,000 MG In NS Inj 100 / 100 100 / 100 100 ML @ 200 mls/hr IV.SIG Q24H [facility] Rx#:[id number] Oral 480 / 480 Narrative: GENERAL: Confused elderly female patient in NAD. SKIN: Warm and dry. No visible rash. CARDIOVASCULAR: Refuses auscultation today. RESPIRATORY: No accessory muscle use. Refuses auscultation today. GASTROINTESTINAL: Refuses examination. MUSCULOSKELETAL: No obvious deformities. NEUROLOGICAL: Awake and alert, however does not answer any questions verbally. Moving all extremities spontaneously. PSYCHIATRIC: Irritable mood, selectively nonverbal today, insight and judgment limited. Results Labs CBC & Chem 7: 08/28/18 09:35 08/28/18 09:35 Labs: Microbiology 08/26/18 04:00 Clean Catch Urine Urine Culture - Final 10-50,000 cfu/mL mixed gram positive elly (probable contaminants) Assessment and Plan (1) Altered mental status: Code(s): R41.82 - Altered mental status, unspecified Status: Acute (2) Dementia: Code(s): F03.90 - Unspecified dementia without behavioral disturbance Status: Acute (3) UTI (urinary tract infection): Code(s): N39.0 - Urinary tract infection, site not specified Status: Acute Plan female presented for altered mental status under Pollard act. Found to have urinary tract infection. Acute metabolic encephalopathy: suspect multifactorial with UTI, SEBLE/dehydration , dementia, possible hypertensive encephalopathy, and possible underlying psychiatric component -treat UTI with abx -treat SEBLE with IVF hydration -control BP as below -monitor neuro checks -monitor on telemetry -monitor for improvement -patient still acutely altered, agitated, paranoid - psych following as below -continue sitter -Consult PT, recommends rehab Urinary tract infection: UA with large leuks, WBCs. Patient unreliable historian , unknown if symptomatic. -Given antibiotics with IV Rocephin -Urine culture with mixed gram-positive elly, probable contaminants -Will discontinue antibiotics SEBLE: Cr 2.07, suspect prerenal secondary to significant dehydration, patient very dry on exam, and admits to poor oral intake -Continue IV fluid hydration -Avoid nephrotoxins -Monitor BMP, slowly improving, creatinine 1.6, patient has intermittently had her IV in place for fluids Psychosis: acute. Presented under Pollard Act. Reportedly reporting suicidal ideation -Psychiatry consulted, discussed with Dr. Randall, will admit to inpatient psychiatry when medically stable -Given Haldol/Ativan x1 to obtain IV access for treatment -continue sitter -Started on seroquel 25mg po bid per psychiatry Accelerated Hypertension with Hypertensive Urgency: acute, BP up to 214/98 today -started on norvasc 5mg daily, titrate up as needed -continue patient's metoprolol succinate 25mg qd -Avoid ALEXANDR secondary to SEBLE -hydralazine prn -Monitor BP, adjust antihypertensives as needed Hyperlipidemia: chronic -continue patient's statin Dementia: chronic -continue patient's Aricept and namenda DVT prophylaxis with SCDs and heparin Discharge Planning: At this time, patient is clinically improving, stable for discharge to medical psychiatric unit to continue IV fluid hydration and blood pressure monitoring. Discharge patient to inpatient med psych unit Condition on discharge: Stable Regular Diet as tolerated Ad Samantha activity Rx written: Amlodipine 5 mg daily Follow-up with primary care physician and psychiatry Progress Note: Quality VTE Deep Vein Thrombosis/Pulmonary Embolism Present on Admission: No _ (1) UTI (urinary tract infection) Qualifiers: Encounter type: Hematuria presence: Indwelling urinary catheter type: Urinary tract infection type: (2) Dementia Qualifiers: Alzheimer's disease onset: Dementia behavioral disturbance: Dementia type : (3) Altered mental status Qualifiers: Altered mental status type: Coma depth: Coma timing:
[2018-08-28] MEDS ORDERED: Calcitriol 0.25 MCG Capsule PO SCH (09:00)
[2018-08-28] MEDS: Sod Chloride 0.9% Inj 1,000 ML IV.CONT SCH (09:08)
[2018-08-28] MEDS: amLODIPine 5 MG Tablet PO SCH (09:10)
[2018-08-28] MEDS: Senna/Docusate Sodium 8.6/50 MG Tablet PO SCH (09:10)
[2018-08-28] MEDS: QUEtiapine 25 MG Tablet PO SCH (09:11)
[2018-08-28 10:15] LABS: Baso # (Auto) 0.1 th/mm3 (0.0-0.2); Baso % (Auto) 0.9 % (0.0-2.0); Eos # (Auto) 0.3 th/mm3 (0.0-0.4); Eos % (Auto) 3.6 % (0.0-4.0); Hematocrit 34.9 % (35.0-46.0); Hemoglobin 11.5 gm/dL (11.6-15.3); Lymph # (Auto) 2.4 th/mm3 (1.0-4.8); Lymph % (Auto) 32.8 % (9.0-44.0); Mean Corpuscular HGB Conc 32.9 % (32.0-36.0); Mean Corpuscular Hemoglobin 27.9 pg (27.0-34.0); Mono # (Auto) 0.6 th/mm3 (0.0-0.9); Mono % (Auto) 7.4 % (0.0-8.0); Neut # (Auto) 4.1 th/mm3 (1.8-7.7); Neut % (Auto) 55.3 % (16.0-70.0); Platelet Count 231 th/mm3 (150-450); Red Blood Count 4.11 mil/mm3 (4.00-5.30); Red Cell Distribution Width 14.8 % (11.6-17.2); White Blood Count 7.5 th/mm3 (4.0-11.0)
[2018-08-28 10:49] LABS: Calcium 8.9 mg/dL (8.5-10.1); Carbon Dioxide 22.1 meq/L (21.0-32.0); Potassium 4.3 meq/L (3.5-5.1)
--- NOTE | 2018-08-28 10:59 | P.DIET ---
Nutritional Evaluation Type of nutrition evaluation: initial Nutrition screening: Poor PO Intake Objective - Diagnosis Dementia, UTI - Objective Dietitian Reviewed in Medical Record: Current diet, Curent medications, Intake & Output, Labs, Medical history Diet Order: Regular Oral Diet Intake Amount: Poor <50% Objective Comments: PMH; unknown Labs; K 3.3, Cr. 1.68, GFR 26, glucose 124 Medications; reviewed Assessment Assessment: MDC Poor PO intake; Pt presents to ED as Marlena Bee following Pollard Act for AMS and possible suicide attempt and is currently at nutritional risk r/t poor PO intake. Energy requirements were unable to be assessed on this pt as there is no height recorded, pt was sleeping and I was unable to speak with RN. Per pt senior business development manager she is not eating much of anything. Pt pediatric care coordinator expressed that she would encourage pt to drink nutrition supplement if they are on her tray. Will send pt Ensure Enlive TID in efforts to support PO intake. Each can of Ensure will provide 350kcal and 20g protein. Will continue to monitor PO intake and supplement acceptance. Recommendations: 1. Continue with regular diet, encourage PO intake 2. Ensure Enlive TID Dietitian to Monitor: Lab values, Supplement acceptance, Intake & Output, Diet tolerance, PO Intake, Medical course
--- NOTE | 2018-08-28 13:01 | P.PNPSY ---
Subjective Remarks: The patient was seen today for psychiatric reevaluation. The case was widely discussed with nursing charge, progress note from [facility] with recommendations and treatment appreciated. On psychiatric evaluation the patient continues to be with a sitter due to unpredictable and aggressive behavior. Patient was found sleeping, but easily arousable. When she wakes up becomes immediately verbally hostile. She says that she does admit to be here, that she needs to be taking care of her dogs at home. She says that nurses "and people here have been very mean with me", she does not trust the nurses, she does not trust "these people around". The patient start yelling and screaming profanity, but she was able to be responsive to verbal de-escalation and redirection. She denies pain, denies distress at the moment. The patient is oriented in person, but completely disoriented in time and place. She does not know the reason of her hospitalization. She has no insight of her psychosis and disorientation. She has been compliant with medications, at some point became paranoia stating that nurses were trying to poison her, but finally took the medications. No significant side effects reported. No collateral information available at the moment. Mental Status Examination Appearance: Disheveled Consciousness: Alert Orientation: Person Motor Activity: Other (states that she amb without assistance, but unable to witness at this time ) Speech: Unremarkable Language: Adequate Fund of Knowledge: Poor Attention and Concentration: Inadequate Memory: Impaired Mood: Sad, Irritable Affect: Irritable Thought Process & Associations: Disorganized Thought Content: Delusional, Other (confused , currently has a UTI ) Hallucination Type: None, Visual Delusion Type: None, Bizarre, Paranoid Suicidal Ideation: No Suicidal Plan: No Suicidal Intention: No Homicidal Ideation: No Homicidal Plan: No Homicidal Intention: No Insight: Poor Judgment: Poor Assessment and Plan - Assessment (1) Unspecified psychosis Code(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 The patient has very poor insight of psychiatric condition and medical conditions as well. Increasing paranoid and hostile with the staff. However, compliant with medications. No significant side effects reported. QTC 441. Unclear if current presentation could be secondary to underlying medical conditions, especially AK I and UTI. But a primary psychotic process need to be carefully rule out. Patient will be transferred to med psych unit once medically stable. Continue current psychotropic regimen. Justification for Continued Inpatient Stay: To be admitted in psychiatry given her level of psychosis and agitation.
--- NOTE | 2018-08-28 19:49 | ECG ---
Date Performed: 08/27/2018 Time Performed: 22:23:07 PTAGE: 89 years EKG: Sinus rhythm INFERIOR MYOCARDIAL INFARCTION MODERATE T-WAVE ABNORMALITY, CONSIDER ANTEROLATERAL ISCHEMIA ABNORMAL ECG NO PREVIOUS TRACING DOCTOR: Tushar Holbrook Interpretating Date/Time 08/28/2018 19:46:51
== END 2018-08-28 15:12 | DRG 689 ==
LOC: NEDA 21:25 → NEPE 21:25 → NEPHCDU 08-26 14:25
PROVIDERS: ADMIT Hospitalist; ATTEND Hospitalist
DX: F29 Unspecified psychosis not due to a substance or known physiological condition; I10 Essential (primary) hypertension; G93.41 Metabolic encephalopathy; R45.851 Suicidal ideations; G30.9 Alzheimer's disease, unspecified; N17.9 Acute kidney failure, unspecified; R45.850 Homicidal ideations; Z79.899 Other long term (current) drug therapy; R31.9 Hematuria, unspecified; F02.81 Dementia in other diseases classified elsewhere, unspecified severity, with behavioral disturbance; E86.0 Dehydration; N39.0 Urinary tract infection, site not specified; I16.0 Hypertensive urgency; E78.5 Hyperlipidemia, unspecified
CPT/HCPCS: 80048; 80053; 80307; 81001; 83735; 84443; 85025; 87086; 90761; 90765; 90775; 93005; 96361; 96365; 96375; 97163; 99285; G0378; J0696; J1630; J1644; J2060; J7030; J7040